=== PATIENT | male | born 1975 | race Caucasian/White ===

== ENCOUNTER 2018-11-19 23:53 | Observation (INO) ==
[2018-11-20] MEDS ORDERED: DUONEB (A & A) INH ONE (00:09)
[2018-11-20] MEDS ORDERED: PREDNISONE PO ONE (00:11)
[2018-11-20 00:25] LABS: BASO# 0.04 X1000 (0.0-0.2); BASO% 0.5 % (0.0-0.8); EOS# 0.02 X1000 (0.0-0.7); EOS% 0.2 % (0.0-10.0); HEMATOCRIT 39.6 % (42.0-52.0); HEMOGLOBIN 13.7 g/dL (14.0-18.0); IMM GRAN# 0.01 X1000 (0.0-0.04); IMM GRAN% 0.1 % (0.0-0.5); LYMPH# 2.46 X1000 (1.2-3.4); LYMPH% 27.9 % (20.5-51.1); MCH 31.6 PG (27-31); MCHC 34.6 g/dL (33-37); MCV 91.2 FL (81-99); MONO# 0.72 X1000 (0.11-0.59); MONO% 8.2 % (1.7-9.3); MPV 9.3 FL (7.4-10.4); NEUT# 5.58 X1000 (1.4-6.5); NEUT% 63.1 % (42.2-75.2); PLT 288 X1000 (130-400); RBC 4.34 XMIL (4.7-6.1); RDW 12.9 % (11.5-14.5); WBC 8.83 X1000 (4.8-10.8)
[2018-11-20 00:43] LABS: AGAP 13; ALBUMIN 4.1 g/dL (3.5-5.0); ALKALINE PHOSPHATASE 94 U/L (32-122); BUN 15 mg/dL (8-22); CALCIUM 8.8 mg/dL (8.8-10.2); CHLORIDE 102 mmol/L (98-107); COSMO 280; CREATININE 0.9 mg/dL (0.7-1.2); ESTIMATED GFR > 60; GLUCOSE 119 mg/dL (70-104); GOT 23 U/L (10-34); GPT 18 U/L (10-44); POTASSIUM 3.5 mmol/L (3.5-5.1); SODIUM 139 mmol/L (136-145); TCO2 24 mmol/L (25-35); TOTAL PROTEIN 7.7 g/dL (6.3-8.3)
[2018-11-20] MEDS ORDERED: ALBUTEROL NEB INH ONE (01:10)
[2018-11-20] MEDS ORDERED: SEPTRA DS PO ONE (01:25)
--- NOTE | 2018-11-20 01:41 | PROVIDER DOCUMENTATION ---
This chart was entered by Gayle Alfonso Scribe, acting as scribe for Adonis Engel CRNP. HPI-Respiratory General - General Source: patient - History of Present Illness-Resp Severity in ED: reports: moderate Onset/Duration: reports: 2 days ago Timing: reports: getting worse Exposure: reports: unknown cause Cough Quality/Degree: reports: moderate Episode Frequency: occasional episodes Current Respiratory Medication Therapy: Initiated albuterol (without improvement) Modifying Factors: improves with: albuterol inhaler (no improvement) Associated Symptoms: reports: cough, fever/chills, shortness of breath, wheezing Similar Symptoms Previously?: Yes Recently seen or treated by another doctor?: No <Adonis Engel - Last Filed: 11/20/18 01:41> <Cesar Snyder - Last Filed: 11/20/18 02:51> - General Chief Complaint: Shortness of Breath Stated Complaint: SOB Time Seen by Provider: 11/20/18 00:08 Allergies/Adverse Reactions: Patient Allergies Allergy/AdvReac Type Severity Reaction Status Date / Time cephalexin monohydrate * Allergy Unknown Unknown Verified 07/26/17 17:00 [From Keflex] - History of Present Illness-Resp Nature of Presenting Problem: pt is a 43 yr old male presenting with 2 day hx of shortness of breath, cough, wheezing. pt reports hx of HIV and asthma. pt has used his inhaler without improvement. pt also admits fever. pt denies any other complaints (Adonis Engel) Review of Systems - Adult - REVIEW OF SYSTEMS - ADULT Constitutional: reports: chills, fever, fatique Eyes: reports: no symptoms reported Ears, Nose, Mouth & Throat: reports: no symptoms reported Cardiovascular: denies: chest pain, palpitations, syncope Respiratory: reports: cough, dyspnea on exertion, shortness of breath, wheezing Gastrointestinal: reports: no symptoms reported Genitourinary: reports: no symptoms reported Musculoskeletal: reports: no symptoms reported Integumentary: reports: no symptoms reported Neurological: reports: no symptoms reported Psychiatric: reports: no symptoms reported Endocrine: reports: no symptoms reported Hematologic/Lymphatic: reports: no symptoms reported Allergic/Immunologic: reports: no symptoms reported All Other Systems: Reviewed and Negative <Adonis Engel - Last Filed: 11/20/18 01:41> Past History - Adult - PAST MEDICAL HISTORY-ADULT Review of Records: reports: Old Records Reviewed, Nursing Assessment Review, Medications Reviewed, Social history reviewed & non-contributory. Major Childhood Illnesses: reports: denies history Cardiovascular: reports: denies history Respiratory: reports: asthma Gastrointestinal: reports: denies history Obstetrical/Gynecological: reports: denies history Genitourinary: reports: denies history Musculoskeletal: reports: denies history Neurological: reports: Seizures/Epilepsy Psychiatric: reports: anxiety Endocrine/Immune: reports: HIV/AIDS Other Conditions: reports: denies history - PRIOR SURGERIES/PROCEDURES Surgical/Procedure History: reports: orthopedic (extremity) - IMMUNIZATION STATUS Childhood Immunizations: See Nurse Assessment Flu Vaccine: See Nurse Assessment - FAMILY HISTORY Family History: reviewed, not pertinent - SOCIAL HISTORY Smoking: cigarettes Substance Use: marijuana Living Situation: family <Adonis Engel - Last Filed: 11/20/18 01:41> Physical Exam-General - PHYSICAL EXAM-ADULT Initial Vital Signs Reviewed: Yes - CONSTITUTIONAL General Appearance: alert, mild distress - EYES Eyes: PERRL/EOMI - HEAD, EARS, NOSE, MOUTH & THROAT HENMT: normocephalic/atraumatic, moist mucous membranes, normal ENT inspection - NECK Neck: non-tender, full range of motion, supple, normal inspection - RESPIRATORY Respiratory: no pleuratic chest pain, no accessory muscle use, respiratory distress (mild), wheezing (bilaterally) - CARDIOVASCULAR Cardiovascular: normal peripheral pulses, no edema, no gallop, no JVD, no murmur , tachycardia - GASTROINTESTINAL (ABDOMEN) Abdominal Exam: normal bowel sounds, non tender, soft - LYMPHATIC Lymphatic: no adenopathy - MUSCULOSKELETAL Back Exam: normal inspection, no CVA tenderness, no vertebral tenderness Extremity: normal range of motion, non-tender, normal gait, normal inspection - SKIN Integumentary: normal color, normal turgor, warm/dry - NEUROLOGIC Neurologic: grossly normal, no motor/sensory deficits - PSYCHIATRIC Psych/Mental Status: normal mood/affect <Adonis Engel - Last Filed: 11/20/18 01:41> Progress - PLAN OF CARE/RESULTS Result Diagrams: 11/20/18 00:13 11/20/18 00:13 <Adonis Engel - Last Filed: 11/20/18 01:41> - PLAN OF CARE/RESULTS Result Diagrams: 11/20/18 00:13 11/20/18 00:13 - REASSESSMENT Reassessment #1 Time Reassessed: 02:35 Status: unchanged Reassessment Comment: continues to wheeze,marginal oxygen sats, recommend admit not d/c - XRAY 1 XRAY Study: Chest (prominent ivone- hilar markings- cannot exclude early PCP pneumonia) <Cesar Snyder - Last Filed: 11/20/18 02:51> - PLAN OF CARE/RESULTS Progress/Plan/Lab Results: Vital Signs - 8 hr 11/19/18 23:57 11/20/18 00:36 11/20/18 02:03 Temperature 99.5 F Pulse Rate 106 H 94 H 74 Respiratory Rate 28 H 18 20 Blood Pressure 109/73 O2 Sat by Pulse Oximetry 95 98 99 Laboratory Results - last 24 hr 11/20/18 11/20/18 11/20/18 00:13 00:13 02:15 WBC 8.83 RBC 4.34 L Hgb 13.7 L Hct 39.6 L MCV 91.2 MCH 31.6 H MCHC 34.6 RDW Std Deviation 12.9 Plt Count 288 MPV 9.3 Immature Gran % (Auto) 0.1 Neut % (Auto) 63.1 Lymph % (Auto) 27.9 [place] % (Auto) 8.2 Eos % (Auto) 0.2 Baso % (Auto) 0.5 Immature Gran # (Auto) 0.01 Neut # (Auto) 5.58 Lymph # (Auto) 2.46 [place] # (Auto) 0.72 H Eos # (Auto) 0.02 Baso # (Auto) 0.04 Specimen Type ARTERIAL Sample Site L RADIAL pH 7.43 pCO2 42 pO2 76 HCO3 27.3 H Base Excess 3.2 H Oxyhemoglobin 91.8 L ABG O2 Sat (Calculated) 17.7 ABG O2 Saturation 95.6 ABG Carboxyhemoglobin 3.10 H ABG Methemoglobin 1.0 Beto Test YES A-a O2 Difference 21.0 Total Hemoglobin 13.7 Lactate 0.60 Blood Gas Modality ROOM AIR FiO2 % 21.0 Sodium 139 Potassium 3.5 Chloride 102 Carbon Dioxide 24 L Anion Gap 13 BUN 15 Creatinine 0.9 Estimated GFR/1.73 m2 > 60 BUN/Creatinine Ratio 17 Glucose 119 H Calculated Osmolality 280 Calcium 8.8 Total Bilirubin 0.30 AST 23 ALT 18 Alkaline Phosphatase 94 Total Protein 7.7 Albumin 4.1 Globulin 4.0 Albumin/Globulin Ratio 1.0 Orders Category Date Time Status IV Insertion ORDERED Care 11/20/18 00:11 Completed CHEST-2 VIEWS [RAD] Stat Exams 11/20/18 00:11 Taken ABG [RESP] Routine Lab 11/20/18 02:15 Completed CBC WITH ELECTRONIC DIFF [HEME] Stat Lab 11/20/18 00:13 Completed COMPREHENSIVE METABOLIC PANEL [CHEM] Stat Lab 11/20/18 00:13 Completed Albuterol 2.5MG/Ipratrop 0.5MG [Duoneb (A & A)] Med 11/20/18 00:09 Discontinued 3 ml INH NOW ONE Albuterol [Albuterol Neb] Med 11/20/18 01:10 Discontinued 5 mg INH NOW ONE Azithromycin [Zithromax] Med 11/20/18 02:37 Stop Req 500 mg PO NOW ONE CefTRIAXONE [Rocephin] Med 11/20/18 02:36 Stop Req 1 gm IM NOW ONE Lidocaine 1% Pf [Xylocaine-Mpf 1%] Med 11/20/18 02:36 Discontinued 5 ml INJ NOW ONE Methylprednisolone Sod Succ [Solu-Medrol] Med 11/20/18 02:37 Discontinued 125 mg IV STAT ONE Prednisone Med 11/20/18 00:11 Discontinued 60 mg PO NOW ONE Sulfamethoxazole/Tmp D.s. [Septra Ds] Med 11/20/18 01:25 Discontinued 1 each PO NOW ONE Aerosol Treatments Routine Oth 11/20/18 00:12 Active Aerosol Treatments Routine Oth 11/20/18 01:11 Active Aerosol Treatments Stat Oth 11/20/18 00:12 Active Aerosol Treatments Stat Oth 11/20/18 01:11 Active Oxygen Device Stat Oth 11/20/18 02:13 Active Transfer/Admit Order [TRANSFER] Routine Transfer 11/20/18 02:02 Ordered Departure - Departure Date of Disposition Decision: 11/20/18 Time of Disposition Decision: 01:32 Certified Medical Emergency: Emergent - Critical Care Note This patient required my direct & personal management of CC.: No <Adonis Engel - Last Filed: 11/20/18 01:41> - Departure Certified Medical Emergency: Emergent - Critical Care Note This patient required my direct & personal management of CC.: Yes <Cesar Snyder OlyCarol - Last Filed: 11/20/18 02:51> - Departure DIAGNOSIS: Pneumonia Qualifiers: Pneumonia type: due to unspecified organism Laterality: bilateral Lung location: unspecified part of lung Qualified Code(s): J18.9 - Pneumonia, unspecified organism Asthma exacerbation Qualifiers: Asthma severity: mild Asthma persistence: intermittent Qualified Code(s): J45.21 - Mild intermittent asthma with (acute) exacerbation Disposition: ADMITTED INPATIENT 09 Condition: Good Attestation - Physician/ UDAY Attestation Patient care was provided by Advanced Practice Provider:: Yes Advanced Practice Provider:: Adonis Engel Advanced Practice Provider documentation review:: The Mid-level provider documentation, treatment plan and medical decision making was reviewed by the physician who agrees with all treatment and medical decision making by the [facility]. The physician spent face to face time with patient:: No Advanced Practice Provider documentation review:: Supervising physician onsite and consulted in the evaluation and care of this patient. The physician did not have a face to face encounter with the patient. <Adonis Engel - Last Filed: 11/20/18 01:41> This chart was documented by the indicated scribe, (Gayle Alfonso Scribe) and accurately reflects the services I performed and decisions made by me, Adonis Engel CRNP, as attested by the provider's signature.
[2018-11-20 02:28] LABS: BE 3.2 mmoll (-3.0-3.0); BLOOD TYPE ARTERIAL; HCO3-(ACT) 27.3 mmoll (20.0-26.0); O2(CT) 17.7 mL/dL (15.0-23.0); O2HB 91.8 % (95.0-99.0); PCO2(98.6) 42 mmHg (35-45); PO2(98.6) 76 mmHg (60-100); SAMPLE BLOOD; SAO2 95.6 % (95.0-100.0); THB 13.7 g/dL (11.5-17.4); pH(98.6) 7.43 (7.35-7.45)
[2018-11-20 02:30] LABS: ALLEN TEST YES; MODALITY ROOM AIR
[2018-11-20] MEDS ORDERED: ROCEPHIN IM ONE (02:36)
[2018-11-20] MEDS ORDERED: XYLOCAINE-MPF 1% INJ ONE (02:36)
[2018-11-20] MEDS ORDERED: SOLU-MEDROL IV ONE (02:37)
[2018-11-20] MEDS ORDERED: ZITHROMAX PO ONE (02:37)
[2018-11-20] MEDS ORDERED: ZITHROMAX 500 MG/NS 500 MG/250 ML IVPB IV ONE (02:52)
[2018-11-20] MEDS: SOLU-MEDROL IV SCH ×3 (03:30→17:31)
[2018-11-20] MEDS: DUONEB (A & A) INH SCH ×6 (03:30→23:08)
--- NOTE | 2018-11-20 07:40 | Diag Imaging Result Doc PS360 ---
EXAM: CHEST-2 VIEWS HISTORY: cough TECHNIQUE: Chest two views COMPARISON: 05/06/2012 FINDINGS: The lungs are hyperexpanded. The heart is not enlarged. The vessels are not distended. There are mild increased markings in the left lung base. No pleural effusions. IMPRESSION: Questionable small left basilar infiltrate. Follow-up films may be beneficial. Electronically signed by Joao Todd 11/20/2018 7:38 AM
[2018-11-20] MEDS ORDERED: NS 1,000 ML IV ONE (08:53)
[2018-11-20] MEDS ORDERED: DUONEB (A & A) INH PRN (09:42)
[2018-11-20] MEDS: LEVAQUIN 750 MG/D5W 750 MG/150 ML IVPB IV SCH (09:53)
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
[2018-11-20] MEDS: NICODERM PATCH TD SCH (11:02)
[2018-11-20] MEDS: SEPTRA DS PO SCH ×2 (12:20→22:52)
[2018-11-20] MEDS ORDERED: TYLENOL PO PRN (12:53)
[2018-11-20] MEDS ORDERED: PATIENT'S OWN MED PO SCH (17:00)
[2018-11-21] MEDS: SOLU-MEDROL IV SCH ×2 (00:05→09:07)
--- NOTE | 2018-11-21 00:27 | HISTORY AND PHYSICAL ---
ADDENDUM: Patient seen and examined by myself. Full note dictated and discussed with nurse practitioner. Patient presented to the hospital, increased work of breathing, cough, congestion. Feels as though he is having a COPD exacerbation. We will admit him to the hospital as he does have pneumonia. Place him on antibiotics, breathing treatments and we will follow. cc: Jamal Green MD
[2018-11-21] MEDS: DUONEB (A & A) INH SCH ×4 (03:23→15:31)
[2018-11-21] MEDS ORDERED: ZITHROMAX 500 MG/NS 500 MG/250 ML IVPB IV SCH (04:00)
[2018-11-21] MEDS: SEPTRA DS PO SCH ×2 (05:53→15:03)
[2018-11-21 07:56] LABS: BASO# 0.05 X1000 (0.0-0.2); BASO% 0.3 % (0.0-0.8); EOS# 0.01 X1000 (0.0-0.7); EOS% 0.1 % (0.0-10.0); HEMATOCRIT 41.2 % (42.0-52.0); HEMOGLOBIN 13.9 g/dL (14.0-18.0); IMM GRAN# 0.05 X1000 (0.0-0.04); IMM GRAN% 0.3 % (0.0-0.5); LYMPH# 1.57 X1000 (1.2-3.4); LYMPH% 8.5 % (20.5-51.1); MCHC 33.7 g/dL (33-37); MONO# 0.64 X1000 (0.11-0.59); MONO% 3.5 % (1.7-9.3); MPV 9.9 FL (7.4-10.4); NEUT# 16.08 X1000 (1.4-6.5); NEUT% 87.3 % (42.2-75.2); PLT 262 X1000 (130-400); RBC 4.48 XMIL (4.7-6.1); RDW 13.1 % (11.5-14.5)
[2018-11-21 08:08] LABS: AGAP 11; BUN 14 mg/dL (8-22); CALCIUM 8.6 mg/dL (8.8-10.2); CHLORIDE 105 mmol/L (98-107); COSMO 284; CREATININE 0.6 mg/dL (0.7-1.2); ESTIMATED GFR > 60; GLUCOSE 145 mg/dL (70-104); MAGNESIUM 1.9 mg/dL (1.5-2.7); POTASSIUM 3.9 mmol/L (3.5-5.1); SODIUM 141 mmol/L (136-145); TCO2 25 mmol/L (25-35)
[2018-11-21] MEDS: NICODERM PATCH TD SCH (09:07)
[2018-11-21] MEDS: LEVAQUIN 750 MG/D5W 750 MG/150 ML IVPB IV SCH (09:17)
[2018-11-21 09:25] LABS: BANDS 2 % (0-1); LYMPHS 18 % (21-51); MONO 6 % (1-9); SEGS 74 % (42-75)
[2018-11-21 09:26] LABS: ANISOCYTOSIS 1+
--- NOTE | 2018-11-21 11:52 | Diag Imaging Result Doc PS360 ---
EXAM: CHEST-PORTABLE 11/21/2018 HISTORY: Dyspnea TECHNIQUE: AP portable at 0516 COMMENT: The inspiration is less optimal than on 11/19/2018. There is no evidence of acute cardiac or pulmonary disease otherwise. IMPRESSION: No evidence of acute disease. Electronically signed by Adithya Wallace 11/21/2018 11:50 AM
[2018-11-21 16:06] VITALS: BP 95/43
[2018-11-22] MEDS ORDERED: LOVENOX SUBQ SCH (09:00)
--- NOTE | 2018-11-22 10:13 | DISCHARGE SUMMARY ---
ADMISSION DATE: 11/19/2018 DISCHARGE DATE: 11/21/2018 DISCHARGE DIAGNOSES: 1. Putative pneumonia left lower lobe versus bronchitis. 2. HIV status with stability. He says his CD4 counts have been in the 700 range, and his viral load has been undetectable; that was as of 2 weeks ago. I think he is a compliant HIV patient, and no evidence per se of immunosuppression at this point. Again, he does not have an AIDS defining illness. HISTORY: Clinically, he seemed better the following day after antibiotics. Granted, he was started on Levaquin Bactrim, and Rocephin for putative PCP, but as far as the patient describes, he does not have that. It is unlikely he has AIDS where he would have Pneumocystis. Plus, he has no infiltrates. He was not particularly hypoxic, although he did have some sats of 91 to 92 although 95 to 99 as well. Discharge condition is stable. I discharged him on Levaquin 500 daily for another 7 days, a Medrol Dosepak as he did have wheezing. He was already on ProAir, and he is on Genvoya which is elvitegravir and emtricitabine, which he takes daily. Discharge condition is stable. Follow up with his PCP or return for worsening shortness of breath or cough. His CD4 count is pending. We will follow up on that. He was encouraged to follow up. He gets his HIV care in the [place] area. TIME SPENT: 32 minute discharge. cc: Lalo Harrington MD
== END 2018-11-21 18:11 | disposition home or self-care (01) ==
LOC: P.ED 23:53 → INTOOBSV 23:54 → SUATTDRO 23:54 → P.EDIPHOLD 11-20 03:52 → P.MEDSURG 11-20 12:08
PROVIDERS: ATTEND Internal Medicine
CPT/HCPCS: 71010; 71020; 71045; 71046; 80048; 80053; 82805; 83735; 85025; 86360; 87040; 87070; 87205; 94640; 94761; 96365; 96366; 96367; 96375; 99285; A9270; J0456; J1956; J2930; J7030; J7506; J7512